=== PATIENT | male | born 1945 | race Caucasian/White ===

== ENCOUNTER 2017-07-24 09:37 | Day surgery (SDC) | payer MEDICARE, OTHER ==
[~2017-07-24] VITALS: Ht 182.9 cm; Wt 118.8 kg
--- NOTE | ~2017-07-24 | OP ---
Record Of Operation [facility] [address] [id number] NAME: CATHLEEN GRADY : 49 STATUS : REG [facility] [place] PAT#: [id number] AGE: 71 ADM/REG DATE : 07/24/17 MR#: [id number] REPORT SERV DATE: 07/24/17 DICTATED BY: RADHA SHIN DATE: 07/24/17 REPORT STATUS : Draft TRANSCRIBED BY: CRISS DATE: 07/24/17 DATE OF PROCEDURE: 07/24/2017 PREPROCEDURE DIAGNOSIS: History of colon polyps. POSTPROCEDURE DIAGNOSIS: History of colon polyps. PROCEDURE: Colon polyp located at 60 cm at the descending colon, removed with snare polypectomy technique. DESCRIPTION OF PROCEDURE: The patient was taken to the endoscopy suite and positioned in the left lateral decubitus position. Informed consent was obtained followed by IV sedation delivered by [employer]OOD [employer] MANAGER. Digital rectal exam was performed. Normal sphincter tone. No masses. The scope was navigated with some difficulty to the ileocecal valve. This required external pressure. Prep was moderately adequate. More than 80% of the mucosa was identified. There was thin liquid, which has to be suctioned and irrigated. There is extensive diverticulosis throughout the entire colon including the cecum. As the scope was withdrawn over a 12-minute period of time, a 1 cm polypoid lesion was noted at 60 cm, which is the proximal descending colon. This was removed with a snare polypectomy technique. The scope was then withdrawn into the rectum retroflexing on itself showing grade 1 internal hemorrhoids and the scope was withdrawn. Based on the size of the polyp, I would recommend repeat colonoscopy in three years. It is my pleasure participating in the care of your patient. BRITTANEY/CRISS Radha Shin M.D. / [id number] CC: Mundo Avila M.D.
[~2017-07-24 09:37] MED LIST: ADVAIR250 INH; ASAB PO; COZAAR100 MG PO; METAMUCIL CAN7 OZ PO; NEUR300 PO; RAPAFLO8 MG PO; TRAZ50 PO; ULTRAM50 PO
== END 2017-07-24 23:59 | disposition home health service (06) ==
LOC: DMU 09:37
PROVIDERS: Surgery
PROC: 0DBM8ZZ Excision of Descending Colon, Via Natural or Artificial Opening Endoscopic (ICD-10-PCS; principal; 2017-07-24 11:00)
DX: Z12.11 Encounter for screening for malignant neoplasm of colon (principal); D12.4 Benign neoplasm of descending colon; K57.30 Diverticulosis of large intestine without perforation or abscess without bleeding; K64.0 First degree hemorrhoids; I10 Essential (primary) hypertension; D64.9 Anemia, unspecified; R00.2 Palpitations; Z86.010 Personal history of colon polyps; J42 Unspecified chronic bronchitis; Z88.8 Allergy status to other drugs, medicaments and biological substances; Z98.890 Other specified postprocedural states; Z98.41 Cataract extraction status, right eye; Z98.42 Cataract extraction status, left eye
CPT/HCPCS: 88305